=== PATIENT | male | born 1990 | race Caucasian/White ===

== ENCOUNTER 2018-04-25 20:19 | Emergency (ER) | payer OTHER ==
[2018-04-25 21:16] VITALS: BP 133/90
[2018-04-25] MEDS ORDERED: Cyclobenzaprine TAB* 10 MG PO ONE (21:53)
--- NOTE | 2018-04-25 21:56 | UC ---
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 a recliner unable to abduct shoulder >45 degrees right handed - History of Current Complaint Chief Complaint: UCUpperExtremity Stated Complaint: RIGHT SHOULDER INJURY Time Seen by Provider: 04/25/18 21:24 Hx Obtained From: Patient Onset/Duration: Sudden Onset Timing: Constant Severity Initially: Severe Severity Currently: Severe Location Of Pain: Is Discrete @ - see image Pain Intensity: 8 Pain Scale Used: 0-10 Numeric Character: Sharp, Aching, Throbbing, Spasmodic Aggravating Factor(s): Movement, External Rotation, Abduction Alleviating Factor(s): Rest Associated Signs And Symptoms: Positive: Negative Related History: Occupational Injury, Dominant Hand Right Torso: 1 - tender 2 - tender - Allergies/Home Medications Allergies/Adverse Reactions: Allergies Allergy/AdvReac Type Severity Reaction Status Date / Time azithromycin [From Zithromax] Allergy Nausea And Verified 04/25/18 21:16 Vomiting Penicillins Allergy Unknown Verified 04/25/18 21:16 Reaction Details pepermint oil Allergy Difficulty Uncoded 04/25/18 21:16 Breathing Home Medications: Home Medications Ibuprofen TAB* [Motrin TAB* 600 MG] 600 mg PO Q8H PRN 04/25/18 [History Confirmed 04/25/18] PMH/Surg Hx/FS Hx/Imm Hx Previously Healthy: Yes - Surgical History Surgical History: None - Family History Known Family History: Positive: Hypertension Negative: Respiratory Disease - Social History Alcohol Use: Occasionally Substance Use Type: None Smoking Status (MU): Light Every Day Tobacco Smoker Type: Cigarettes Amount Used/How Often: <1/2 PPD Length of Time of Smoking/Using Tobacco: 3 Years Have You Smoked in the Last Year: Yes Household Exposure Type: Cigarettes Review of Systems All Other Systems Reviewed And Are Negative: Yes Constitutional: Positive: Negative Skin: Positive: Negative Eyes: Positive: Negative ENT: Positive: Negative Respiratory: Positive: Negative Cardiovascular: Positive: Negative Genitourinary: Positive: Negative Motor: Positive: Decreased ROM Neurovascular: Positive: Negative Musculoskeletal: Positive: Arthralgia - r shoulder, Myalgia - right shoulder Neurological: Positive: Negative Psychological: Positive: Negative Physical Exam Triage Information Reviewed: Yes Appearance: Well-Appearing, No Pain Distress, Well-Nourished Vital Signs: Initial Vital Signs Temp 97.9 F 04/25/18 21:12 Pulse 55 04/25/18 21:12 Resp 15 04/25/18 21:12 BP 133/90 04/25/18 21:12 Pulse Ox 100 04/25/18 21:12 Vital Signs Reviewed: Yes Eyes: Positive: Conjunctiva Clear ENT: Positive: Hearing grossly normal, Pharynx normal, Uvula midline. Negative : Trismus, Muffled voice, Hoarse voice Neck: Positive: Supple, Nontender Respiratory: Positive: Lungs clear, Normal breath sounds, No respiratory distress Cardiovascular: Positive: RRR, No Murmur Musculoskeletal: Positive: ROM Limited @ - right shoulder-unable to abduct >45 degrees, pain with external rotation.int rotation right rhomboid tender Neurological: Positive: Alert Psychological Exam: Normal Skin Exam: Normal Diagnostics - Radiology No standard instances Radiology Interpretation Completed By: ED Physician Summary of Radiographic Findings: no fx/dislocation Shoulder Course/Dx - Differential Dx/Diagnosis Provider Diagnosis: Right shoulder injury, Right shoulder strain, Elevated BP without diagnosis of hypertension Discharge - Sign-Out/Discharge Documenting (check all that apply): Patient Departure All imaging exams completed and their final reports reviewed: No - Discharge Plan Condition: Stable Disposition: HOME Prescriptions: Cyclobenzaprine (NF) [Cyclobenzaprine 5 MG (NF)] 5 mg PO TID PRN #21 tab PRN Reason: Spasms - Muscle Ibuprofen TAB* [Motrin TAB*] 600 mg PO QID PRN #40 tab PRN Reason: Pain Patient Education Materials: Shoulder Pain (ED) Forms: *Work Release Referrals: Luis Allison MD [Medical Doctor] - Additional Instructions: Please follow up with orthopedist you could have possible torn or partly torn your rotator cuff - Billing Disposition and Condition Condition: STABLE Disposition: Home
--- NOTE | 2018-04-26 14:39 | UC ---
- Progress Note Progress Note: RADIOLOGY REPORT REVIEWED. NO EVIDENCE OF FRACTURE. NO CHANGE IN MGMT. Course/Dx - Diagnoses Provider Diagnoses: Right shoulder injury, Right shoulder strain, Elevated BP without diagnosis of hypertension Discharge - Sign-Out/Discharge Documenting (check all that apply): Post-Discharge Follow Up All imaging exams completed and their final reports reviewed: Yes - Discharge Plan Condition: Stable Disposition: HOME Prescriptions: Cyclobenzaprine (NF) [Cyclobenzaprine 5 MG (NF)] 5 mg PO TID PRN #21 tab PRN Reason: Spasms - Muscle Ibuprofen TAB* [Motrin TAB*] 600 mg PO QID PRN #40 tab PRN Reason: Pain Patient Education Materials: Shoulder Pain (ED) Forms: *Work Release Referrals: Luis Allison MD [Medical Doctor] - Additional Instructions: Please follow up with orthopedist you could have possible torn or partly torn your rotator cuff - Billing Disposition and Condition Condition: STABLE Disposition: Home
== END 2018-04-25 22:07 | disposition home or self-care (01) ==
LOC: UCCORT 20:19
DX: S49.92XA Unspecified injury of left shoulder and upper arm, initial encounter (principal); S46.912A Strain of unspecified muscle, fascia and tendon at shoulder and upper arm level, left arm, initial encounter; R03.0 Elevated blood-pressure reading, without diagnosis of hypertension; F17.210 Nicotine dependence, cigarettes, uncomplicated; Z88.1 Allergy status to other antibiotic agents; Z91.09 Other allergy status, other than to drugs and biological substances; Z88.0 Allergy status to penicillin; X50.0XXA Overexertion from strenuous movement or load, initial encounter; Y93.89 Activity, other specified; Y92.9 Unspecified place or not applicable
CPT/HCPCS: 99213; A9270-GY; G0463

== ENCOUNTER 2019-01-13 16:56 | Emergency (ER) | payer OTHER ==
[2019-01-13 17:15] VITALS: BP 119/69
--- NOTE | 2019-01-13 17:15 | UC ---
FLU HPI - HPI Summary HPI Summary: 28-year-old male who was had cough and cold symptoms for approximately one week. He states he now has a productive cough with a fever. Underlies body aches and a sore throat. - History of Current Complaint Stated Complaint: COUGH/CONGESTION/CLINTON/EYES HURT Time Seen by Provider: 01/13/19 17:14 Hx Obtained From: Patient Onset/Duration: Gradual Onset Severity Currently: Mild Severity Initially: Mild Associated Signs & Symptoms: Positive: Fever, Myalgia, Cough, Sore Throat, Nasal Congestion - Allergy/Home Medications Allergies/Adverse Reactions: Allergies Allergy/AdvReac Type Severity Reaction Status Date / Time azithromycin [From Zithromax] Allergy Nausea And Verified 01/13/19 17:10 Vomiting Penicillins Allergy Unknown Verified 01/13/19 17:10 Reaction Details pepermint oil Allergy Difficulty Uncoded 01/13/19 17:10 Breathing Home Medications: Home Medications Phenylephrine/Dm/Acetaminop/GG [Tylenol Cold-Flu Severe Caplet] 2 tab PO ONCE [History Confirmed 01/13/19] PMH/Surg Hx/FS Hx/Imm Hx Previously Healthy: Yes - Surgical History Surgical History: None - Family History Known Family History: Positive: Hypertension Negative: Respiratory Disease - Social History Occupation: Employed Full-time Lives: With Family Alcohol Use: Occasionally Substance Use Type: None Smoking Status (MU): Light Every Day Tobacco Smoker Type: Cigarettes Amount Used/How Often: <1/2 PPD Length of Time of Smoking/Using Tobacco: 3 Years Have You Smoked in the Last Year: Yes Household Exposure Type: Cigarettes Review of Systems All Other Systems Reviewed And Are Negative: Yes Constitutional: Positive: Fever, Chills ENT: Positive: Sore Throat, Nasal Discharge Respiratory: Positive: Cough - Occasional productive cough. Musculoskeletal: Positive: Myalgia Is Patient Immunocompromised?: No Physical Exam Triage Information Reviewed: Yes Appearance: Well-Appearing, No Pain Distress, Well-Nourished Vital Signs Reviewed: Yes Eyes: Positive: Conjunctiva Clear ENT: Positive: Pharyngeal erythema - Mild pharyngeal erythema., Nasal drainage - Clear nasal coryza, TMs normal, Uvula midline Neck: Positive: Supple, Nontender, No Lymphadenopathy Respiratory: Positive: Normal breath sounds, No respiratory distress, No accessory muscle use, Rhonchi - Very mild rhonchi right lower lobe posteriorly. Good Air movement. Cardiovascular: Positive: RRR, No Murmur, Pulses Normal, Brisk Capillary Refill Abdomen Description: Positive: Nontender, No Organomegaly, Soft. Negative: CVA Tenderness (R), CVA Tenderness (L), Distended, Guarding, Hepatomegaly, McBurney' s Point Tenderness, Splenomegaly Bowel Sounds: Positive: Present Musculoskeletal Exam: Normal Neurological Exam: Normal Psychological Exam: Normal Skin Exam: Normal Flu Course/Dx - Course Course Of Treatment: Chest x-ray:Indication: Cough, fever. 2 views of the chest are reviewed. No mediastinal shift is noted. Airspace disease in the right medial lung base consistent with right lower lobe pneumonia is noted. Left lung field is clear. IMPRESSION: Findings consistent with right lower lobe pneumonia. Rapid flu test:negative Will trteat with Doxycycline and follow up at [facility] before the RX is complete. Physician referral service pamphlet given. Pt advised not to work bt he states he has to work with the holidays coming up. - Differential Dx/Diagnosis Provider Diagnosis: Pneumonia Discharge ED - Sign-Out/Discharge Documenting (check all that apply): Patient Departure All imaging exams completed and their final reports reviewed: Yes - Discharge Plan Condition: Fair Disposition: HOME Prescriptions: DOXYcycline CAP(*) [DOXYcycline 100MG CAP(*)] 100 mg PO BID 10 Days #20 cap Patient Education Materials: Community Acquired Pneumonia (DC) Referrals: [facility] [Outside] [facility] [Outside] No Primary Care Phys,NOPCP [Primary Care Provider] - Additional Instructions: Increase fluids, no dairy products, antacids or multivitamins 2 hours before you take the doxycycline and 2 hours after however he wanted be sure and take it with food. Definite follow up at [facility], call and see when they would like to have you follow-up for a recheck of the pneumonia. If your symptoms worsen and you develop difficulty breathing you are to go to the emergency room. The physician referral center will help you establish care with a local primary care physician. May continue Tylenol every 4 hours and Motrin every 8 hours for fever or body aches. - Billing Disposition and Condition Condition: FAIR Disposition: Home
[2019-01-13 17:34] LABS: Influenza A Molecular NEGATIVE (Negative); Influenza B Molecular NEGATIVE (Negative)
[2019-01-13] MEDS ORDERED: Acetaminophen TAB* 325 MG PO ONE (17:35)
== END 2019-01-13 18:02 | disposition home or self-care (01) ==
LOC: UCCORT 16:56
DX: J18.9 Pneumonia, unspecified organism (principal); F17.210 Nicotine dependence, cigarettes, uncomplicated; Z88.1 Allergy status to other antibiotic agents; Z88.0 Allergy status to penicillin; Z91.018 Allergy to other foods
CPT/HCPCS: 71046; 99212; A9270-GY; G0463